=== PATIENT | female | born 1980 | race Caucasian/White ===

== ENCOUNTER 2017-06-05 11:38 | Emergency (ER) | payer MEDICAID ==
[~2017-06-05] VITALS: Ht 162.6 cm; Wt 90.0 kg
[2017-06-05 11:39] VITALS: BP 162/82; PULSE 81; RESP 16; TEMP 98.1; O2SAT 98
--- NOTE | 2017-06-05 13:09 | PD ---
HPI Chief Complaint: Skin Problem Time Seen by Provider: 12:42 Travel History International Travel<30 days: No Contact w/Intl Traveler<30days: No Traveled to known affect area: No History of Present Illness HPI 36-year-old female presents to the ED for evaluation of worsening eczema and pruritic rash of the bilateral hands and left side of the face. Gradual onset. Patient states that she borrowed a coat lined with fake fur just before the rash was onset. She denies fevers, chills, breathing difficulties, chest pain or palpitations. Denies other known exposures to new deodorants, soaps. States that she is out of steroid cream x 3 days. PFSH Past Medical History Medical History: Denies Significant Hx ?: Not LMP: 05/2017 Ectopic : Yes Past Surgical History Section: Yes Social History Alcohol Use: Yes Tobacco Use: Yes Substance Use: No Allergies-Medications (Allergen,Severity, Reaction): Coded Allergies: No Known Allergies (Unverified , 06/05/17) Reported Meds & Prescriptions Reported Meds & Active Scripts Active Triamcinolone Topical (Triamcinolone Acetonide) 0.1% Cream 1 Applic TOPICAL BID 10 Days Prednisone 20 Mg Tab 20 Mg PO DAILY 4 Days Review of Systems Except as stated in HPI: all other systems reviewed are Neg Physical Exam Narrative GENERAL: Well-nourished, well-developed white female no acute distress. SKIN: Focused skin assessment warm/dry. Desquamation of the palms bilaterally, chronic appearing. Scattered, erythematous, blanching, maculopapular rash distributed on the posterior aspects of bilateral hands and the left cheek. HEAD: Normocephalic. ENT: No erythema, edema, exudate of the oropharynx. Uvula midline. Airway patent. EYES: No scleral icterus. No injection or drainage. NECK: Supple, trachea midline. No JVD or lymphadenopathy. CARDIOVASCULAR: Regular rate and rhythm without murmurs, gallops, or rubs. RESPIRATORY: Breath sounds clear and equal bilaterally. No accessory muscle use. GASTROINTESTINAL: Abdomen soft, non-tender, nondistended. MUSCULOSKELETAL: No cyanosis, or edema. BACK: Nontender without obvious deformity. No CVA tenderness. Data Data Last Documented VS Vital Signs Date Time Temp Pulse Resp B/P (MAP) Pulse Ox O2 Delivery O2 Flow Rate FiO2 06/05/17 13:51 06/05/17 11:39 98.1 81 16 98 Orders Orders Prednisone (Deltasone) (06/05/17 13:15) Ed Discharge Order (06/05/17 13:31) [facility] Medical Decision Making Medical Screen Exam Complete: Yes Emergency Medical Condition: Yes Differential Diagnosis Eczema versus contact dermatitis versus scabies versus other Narrative Course 36-year-old female presents to the ED for evaluation of worsening eczema and pruritic rash of the bilateral hands and left side of the face. Gradual onset. Patient states that she borrowed a coat with fake fur on the inside from a friend just before the rash was onset. She denies fevers, chills, breathing difficulties. Vitals reviewed. Physical exam consistent with eczema of the palms of the hand bilaterally with a scattered, erythematous, blanching, maculopapular rash distributed over the back of the hands and of the left base. No interdigital lesions. Suspect this is contact dermatitis superimposed on chronic eczema. Patient's prescribed when he developed grams prednisone 4 days , first dose administered in the ED. She is provided a 15 g tube of triamcinolone cream. She was cautioned not to take oral steroids while using topical steroids. She was advised that the steroid cream is for treatment of her chronic problem after her acute problem is treated. She is instructed to avoid known irritants, warm showers. She indicated understanding of the instructions and is agreeable care plan. The patient is stable and discharged home. Diagnosis Primary Impression: Contact dermatitis and eczema Referrals: Senior Executive Compensation Analyst Patient Instructions: Contact Dermatitis (ED), Eczema (ED), General Instructions Additional Instructions: Rest, hydrate. Take oral steroids for the next 4 days as prescribed. Use topical steroids after finishing the oral steroids. DO NOT USE BOTH ORAL AND TOPICAL STEROIDS AT THE SAME TIME. Avoid hot showers as this can worsen itching and peeling. Follow-up with the ceramic tile installer this week. Return to the ED for any urgent or emergent medical condition. Med/Other Pt SpecificInfo: Prescription(s) given Scripts Triamcinolone Topical (Triamcinolone Topical) 0.1% Cream 1 APPLIC TOPICAL BID for Inflammation for 10 Days, #15 GM 0 Refills Prov: Abram Castellano MD 06/05/17 Prednisone (Prednisone) 20 Mg Tab 20 MG PO DAILY for 4 Days, #4 TAB 0 Refills Prov: Abram Castellano MD 06/05/17 Disposition: 01 DISCHARGE HOME Condition: Stable Aylin Washington Jun 05, 2017 13:09
[2017-06-05] MEDS ORDERED: predniSONE 20 MG TAB PO ONE (13:15)
[2017-06-05] MEDS ORDERED: PRED20 PO (13:31)
[2017-06-05] MEDS ORDERED: TRIA.1%T TOPICAL (13:31)
== END 2017-06-05 13:52 | disposition home or self-care (01) ==
LOC: NEPD 11:38
DX: L25.9 Unspecified contact dermatitis, unspecified cause (principal); Z72.0 Tobacco use
CPT/HCPCS: 99283; J7512

== ENCOUNTER 2017-06-26 10:17 | Emergency (ER) | payer MEDICAID ==
[~2017-06-26] VITALS: Ht 162.6 cm; Wt 90.5 kg
[~2017-06-26 10:17] MED LIST: PRED20 PO; TRIA.1%T TOPICAL
[2017-06-26 10:18] VITALS: BP 164/83; PULSE 80; RESP 16; TEMP 97.8; O2SAT 100
[2017-06-26] MEDS ORDERED: ONDANSETRON ODT 4 MG TAB PO ONE (10:45)
--- NOTE | 2017-06-26 10:56 | PD ---
HPI Chief Complaint: Eye Problems/Injury Time Seen by Provider: 10:31 Travel History International Travel<30 days: No Contact w/Intl Traveler<30days: No Traveled to known affect area: No History of Present Illness HPI 36-year-old female presents to the emergency Department with complaint of cannon grease splashing into her left eyelid and she thinks she may have gotten in her left eye. She denies eye pain, drainage. Denies change in vision. Had a contact lens in at the time and has removed it. Reports burning sensation around her eye. Rates pain 5/10. Has applied ice to the area. Has not taken any medications or tried any other treatments to alleviate her symptoms. No known aggravating factors. No known allergies. Denies significant past medical history. No primary care provider has no other medical complaints. No other modifying factors or associated signs and symptoms. PFSH Past Medical History Ectopic : Yes Past Surgical History Section: Yes Social History Alcohol Use: Yes Tobacco Use: Yes Substance Use: No Allergies-Medications (Allergen,Severity, Reaction): Coded Allergies: No Known Allergies (Unverified , 06/05/17) Reported Meds & Prescriptions Reported Meds & Active Scripts Active Triamcinolone Topical (Triamcinolone Acetonide) 0.1% Cream 1 Applic TOPICAL BID 10 Days Prednisone 20 Mg Tab 20 Mg PO DAILY 4 Days Review of Systems Except as stated in HPI: all other systems reviewed are Neg Physical Exam Narrative GENERAL: Well-nourished, well-developed female patient, in no acute distress SKIN: Warm and dry. I do not see any obvious burn shane around the left eye or to the left eyelid; there is no redness, blistering; the skin is tender to light palpation. HEAD: Atraumatic. Normocephalic. EYES: Pupils equal and round at 3 mm with brisk reaction. PERRLA. EOMI. Left lid eversion with no foreign body noted. Left eye without scleral erythema or lid edema. No orbital tenderness, erythema or cellulitis. Left eye without photophobia. No consensual photophobia. No scleral icterus. No drainage. Briceno lamp exam normal. ENT: Mucosa pink and moist. Airway patent. NECK: Trachea midline. CARDIOVASCULAR: Regular rate. RESPIRATORY: No accessory muscle use. GASTROINTESTINAL: Rounded.. NEUROLOGICAL: Awake and alert. Oriented 3. No obvious cranial nerve deficits. Motor grossly within normal limits. Normal speech. PSYCHIATRIC: Appropriate mood and affect; insight and judgment normal. Data Data Last Documented VS Vital Signs Date Time Temp Pulse Resp B/P (MAP) Pulse Ox O2 Delivery O2 Flow Rate FiO2 06/26/17 11:03 06/26/17 11:03 18 06/26/17 10:18 97.8 80 100 Orders Orders Ed Discharge Order (06/26/17 10:56) MDM Medical Decision Making Medical Screen Exam Complete: Yes Emergency Medical Condition: Yes Medical Record Reviewed: Yes Differential Diagnosis Burn of left eyelid, superficial burn, first-degree burn, corneal burn Narrative Course 36-year-old female with grease burn of left eyelid. There is no visualized burn but the skin is painful to light palpation and the patient reports a burning sensation. I did a Briceno lamp exam which was unremarkable. The patient washed the area prior to arrival. I offered the patient pain medication and she declined. Instructed patient to follow up with primary care provider. Patient verbalizes understanding and agreement with treatment plan. Patient is medically cleared and stable for discharge. Discussed reasons to return to the emergency department. Patient agrees with treatment plan. The patients vital signs are stable and the patient is stable for outpatient follow- up and treatment. Patient discharged home, stable and in no acute distress. Diagnosis Primary Impression: Burn of left eyelid Qualified Codes: T26.02XA - Burn of left eyelid and periocular area, initial encounter Referrals: [facility] Primary Care Physician Patient Instructions: General Instructions, Superficial Burn (ED) Additional Instructions: Ice to affected area as needed for pain/inflammation Ibuprofen or Tylenol instructed nothing for pain and inflammation Follow-up with primary care provider Return to the emergency department immediately, particularly with symptoms as discussed Med/Other Pt SpecificInfo: No Change to Meds, No Meds Exist/No RX given Disposition: 01 DISCHARGE HOME Condition: Stable Ana Meraz Jun 26, 2017 10:56
== END 2017-06-26 11:05 | disposition home or self-care (01) ==
LOC: NEPD 10:17
DX: T26.02XA Burn of left eyelid and periocular area, initial encounter (principal); Z72.0 Tobacco use; Z79.899 Other long term (current) drug therapy
CPT/HCPCS: 99282

== ENCOUNTER 2017-09-12 16:29 | Emergency (ER) | payer MEDICAID ==
[2017-09-12 16:37] VITALS: BP 167/87; PULSE 94; RESP 18; TEMP 97.7; O2SAT 99
[2017-09-12] MEDS ORDERED: CEPHALEXIN MONOHYDRATE 500 MG CAP PO ONE (19:00)
[2017-09-12] MEDS ORDERED: predniSONE 20 MG TAB PO ONE (19:00)
[2017-09-12] MEDS ORDERED: NYSTCRE29 TOPICAL (19:05)
[2017-09-12] MEDS ORDERED: CEPH-460 PO (19:05)
--- NOTE | 2017-09-12 19:06 | PD ---
HPI Chief Complaint: Skin Problem Time Seen by Provider: 18:35 Travel History International Travel<30 days: No Contact w/Intl Traveler<30days: No Traveled to known affect area: No History of Present Illness HPI 36y female presents to the ED c/o bilateral hand pain, swelling, and scaling for 1 day. Says she used leather and nylon gloves yesterday and developed this rash shortly afterward. Denies fever, chills, chest pain, SOB. Says she has a history of eczema-type reaction of her hands but has never been as severe as it is today. She has used over the counter [place] butter with some relief. Denies chronic medical problems. Denies unusual exposures to chemicals, foods, or otherwise. PFSH Past Medical History Medical History: Denies Significant Hx Diminished Hearing: No Integumentary: Yes (eczema) Tetanus Vaccination: < 5 Years ?: Not LMP: last week Ectopic : Yes Past Surgical History Section: Yes Gynecologic Surgery: Yes Social History Alcohol Use: Yes Tobacco Use: Yes (1/2ppd) Substance Use: No Allergies-Medications (Allergen,Severity, Reaction): Coded Allergies: No Known Allergies (Unverified , 09/12/17) Reported Meds & Prescriptions Reported Meds & Active Scripts Active Prednisone 5 Mg Tab 5 Mg PO DAILY 7 Days Keflex (Cephalexin) 500 Mg Cap 500 Mg PO Q8H 5 Days Nystatin-Triamcinolone 100,000-0.1 Unit/Gm Cream 1 Applic TOPICAL BID 7 Days Review of Systems Except as stated in HPI: all other systems reviewed are Neg Physical Exam Narrative GENERAL: WD, WN in NAD SKIN: Warm and dry. HEAD: Atraumatic. Normocephalic. EYES: Pupils equal and round. No scleral icterus. No injection or drainage. ENT: No nasal bleeding or discharge. Mucous membranes pink and moist. NECK: Trachea midline. No JVD. CARDIOVASCULAR: Regular rate and rhythm. RESPIRATORY: No accessory muscle use. Clear to auscultation. Breath sounds equal bilaterally. MUSCULOSKELETAL: Extremities without clubbing, cyanosis, or edema. No obvious deformities. Bilateral hands- palmar aspect scaling with honey crusting along flexors, erythema and mild swelling to fingers. satellite lesions to dorsal hand.limited to hands, no involvement to the wrists. NEUROLOGICAL: Awake and alert. No obvious cranial nerve deficits. Motor grossly within normal limits. Normal speech. PSYCHIATRIC: Appropriate mood and affect; insight and judgment normal. Data Data Last Documented VS Vital Signs Date Time Temp Pulse Resp B/P (MAP) Pulse Ox O2 Delivery O2 Flow Rate FiO2 09/12/17 16:37 97.7 94 18 167/87 (113) 99 Orders Orders Cephalexin (Keflex) (09/12/17 19:00) Prednisone (Deltasone) (09/12/17 19:00) Ed Discharge Order (09/12/17 19:08) [facility] Medical Decision Making Medical Screen Exam Complete: Yes Emergency Medical Condition: Yes Differential Diagnosis contact dermatitis, eczema, cellulitis Narrative Course 36y female presents to the ED c/o swelling, erythema, and pruritus of the hands after wearing gloves yesterday. Says she has a history of eczema but does not remember having this rash of this severity. Vital signs stable. Keflex and prednisone for developing skin infection and probably eczema. It appears as if this rash has been present for longer than 1 day although she says otherwise. Will cover with nystatin-triamcinolone, keflex, and short course of prednisone. Advised she should return for worsening or persistent symptoms. Advised to return for worsening symptoms. Follow up with dermatology. Diagnosis Primary Impression: Contact dermatitis Qualified Codes: L25.9 - Unspecified contact dermatitis, unspecified cause Referrals: Primary Care Physician Additional Instructions: Take all medications as prescribed. Avoid exposures to chemicals or other substances. Scripts Prednisone (Prednisone) 5 Mg Tab 5 MG PO DAILY for 7 Days, #7 TAB 0 Refills Prov: Brisa Robledo MD 09/12/17 Cephalexin (Keflex) 500 Mg Cap 500 MG PO Q8H for Infection for 5 Days, #15 CAP 0 Refills Prov: Anu Heaton 09/12/17 Nystatin-Triamcinolone (Nystatin-Triamcinolone) 100,000-0.1 Unit/Gm Cream 1 APPLIC TOPICAL BID for Infection for 7 Days, #15 GM 0 Refills Prov: Anu Heaton 09/12/17 Disposition: 01 DISCHARGE HOME Condition: Stable Anu Heaton Sep 12, 2017 19:06
[2017-09-12] MEDS ORDERED: PRED5TAB PO (19:07)
== END 2017-09-12 19:12 | disposition home or self-care (01) ==
LOC: NED 16:29 → NEPA 19:12
DX: L25.9 Unspecified contact dermatitis, unspecified cause (principal); F17.200 Nicotine dependence, unspecified, uncomplicated
CPT/HCPCS: 99284; J7512

== ENCOUNTER 2017-09-25 23:23 | Emergency (ER) | payer MEDICAID, OTHER ==
[~2017-09-25] VITALS: Ht 162.6 cm; Wt 91.0 kg
[~2017-09-25 23:23] MED LIST changes: +CEPH-460 PO; +NYSTCRE29 TOPICAL; -PRED20 PO; +PRED5TAB PO; -TRIA.1%T TOPICAL
[2017-09-25 23:31] VITALS: BP 152/78; PULSE 78; RESP 18; TEMP 98.4; O2SAT 100
--- NOTE | 2017-09-26 00:02 | PD ---
HPI Chief Complaint: Psychiatric Symptoms Time Seen by Provider: 23:57 Travel History International Travel<30 days: No Contact w/Intl Traveler<30days: No Traveled to known affect area: No History of Present Illness HPI 37-year-old white female presents emergency department under [place] act by PD. Patient had made suicidal statements to her significant other who had called PD. The patient states that she had been in a verbal argument with her boyfriend and he was not allowing her to leave the house. She states that she said this to enable her to leave. She denies any true suicidal ideation. No toxic ingestions. No homicidal ideation. She does report having a scaly dermatitis on her hands and arms which is pruritic but she states that she has a history of contact dermatitis. She was seen in the emergency department earlier last month was given medication which seem to be improving. Patient also states that she is currently on her menstrual cycle now even though she had one 2 weeks ago. PFSH Past Medical History Anemia: Yes Diabetes: No Patient Takes Glucophage: No Diminished Hearing: No Integumentary: Yes (eczema) Immunizations Current: Yes Tetanus Vaccination: > 5 Years Influenza Vaccination: No ?: Unknown LMP: CURRENT : 3 Para: 2 Miscarriage: 1 Ectopic : Yes Tubal Ligation: Yes Past Surgical History Section: Yes Gynecologic Surgery: Yes (ectopic ) Tonsillectomy: Yes Social History Alcohol Use: Yes Tobacco Use: Yes (1/2ppd) Substance Use: Yes (Marijuana) Allergies-Medications (Allergen,Severity, Reaction): Coded Allergies: bee venom protein (honey bee) (Verified Allergy, Unknown, 09/25/17) Reported Meds & Prescriptions Reported Meds & Active Scripts Active No Active Prescriptions or Reported Medications Review of Systems General / Constitutional: No: Fever Eyes: No: Visual changes HENT: No: Headaches Cardiovascular: No: Chest Pain or Discomfort Respiratory: No: Shortness of Breath Gastrointestinal: No: Abdominal Pain Genitourinary: No: Dysuria Musculoskeletal: No: Pain Skin: Positive Rash, Positive Itching, Positive Dryness, Positive Lesions Neurologic: No: Weakness Psychiatric: Positive: Mood Disorder, Substance Abuse, No: Anxiety, Depression , Suicidal Ideations, Disorder of Thought, Homicidal Ideation Endocrine: No: Polydipsia Hematologic/Lymphatic: No: Easy Bruising Physical Exam Narrative GENERAL: Well-nourished, well-developed patient. SKIN: Patient has dry scaly dermatitis to the palms of her hand and forearms. HEAD: Normocephalic and atraumatic. EYES: No scleral icterus. No injection or drainage. ENT: No nasal drainage noted. Mucous membranes pink. Airway patent. NECK: Supple, trachea midline. Moves head freely without obvious discomfort. CARDIOVASCULAR: Regular rate and rhythm without murmurs, gallops, or rubs. RESPIRATORY: Breath sounds equal bilaterally. No accessory muscle use. GASTROINTESTINAL: Abdomen soft, non-tender, nondistended. EXTREMITIES: No cyanosis or edema. BACK: Nontender without obvious deformity. No CVA tenderness. NEURO: Patient is alert and oriented. no sensorimotor deficits. Nonfocal. Normal speech. PSYCH: No delusions. No auditory or visual hallucinations. Data Data Last Documented VS Vital Signs Date Time Temp Pulse Resp B/P (MAP) Pulse Ox O2 Delivery O2 Flow Rate FiO2 09/25/17 23:31 98.4 78 18 152/78 (102) 100 Orders Orders Complete Blood Count With Diff (09/25/17 23:56) Comprehensive Metabolic Panel (09/25/17 23:56) Thyroid Stimulating Hormone (09/25/17 23:56) Ed Urine Pregnancytest Poc (09/25/17 23:56) Psych Screen (09/25/17 23:56) Drug Screen, Random Urine (09/25/17 23:56) Alcohol (Ethanol) (09/25/17 23:56) Labs Laboratory Tests Test 09/25/17 23:37 White Blood Count 13.1 TH/MM3 Red Blood Count 4.50 MIL/MM3 Hemoglobin 13.2 GM/DL Hematocrit 39.3 % Mean Corpuscular Volume 87.2 FL Mean Corpuscular Hemoglobin 29.2 PG Mean Corpuscular Hemoglobin Concent 33.5 % Red Cell Distribution Width 14.8 % Platelet Count 356 TH/MM3 Mean Platelet Volume 8.8 FL Neutrophils (%) (Auto) 65.8 % Lymphocytes (%) (Auto) 23.7 % Monocytes (%) (Auto) 6.6 % Eosinophils (%) (Auto) 2.9 % Basophils (%) (Auto) 1.0 % Neutrophils # (Auto) 8.7 TH/MM3 Lymphocytes # (Auto) 3.1 TH/MM3 Monocytes # (Auto) 0.9 TH/MM3 Eosinophils # (Auto) 0.4 TH/MM3 Basophils # (Auto) 0.1 TH/MM3 CBC Comment AUTO DIFF Differential Comment AUTO DIFF CONFIRMED Platelet Estimate NORMAL Platelet Morphology Comment NORMAL Blood Urea Nitrogen 11 MG/DL Creatinine 0.75 MG/DL Random Glucose 81 MG/DL Total Protein 8.3 GM/DL Albumin 4.1 GM/DL Calcium Level 8.8 MG/DL Alkaline Phosphatase 44 U/L Aspartate Amino Transf (AST/SGOT) 25 U/L Alanine Aminotransferase (ALT/SGPT) 39 U/L Total Bilirubin 0.3 MG/DL Sodium Level 139 MEQ/L Potassium Level 3.8 MEQ/L Chloride Level 104 MEQ/L Carbon Dioxide Level 24.6 MEQ/L Anion Gap 10 MEQ/L Estimat Glomerular Filtration Rate 86 ML/MIN Thyroid Stimulating Hormone 3rd Gen 4.690 uIU/ML Urine Opiates Screen POS Urine Barbiturates Screen NEG Urine Amphetamines Screen NEG Urine Benzodiazepines Screen NEG Urine Cocaine Screen NEG Urine Cannabinoids Screen POS Ethyl Alcohol Level LESS THAN 3 MG/DL MDM Medical Decision Making Medical Screen Exam Complete: Yes Emergency Medical Condition: Yes Medical Record Reviewed: Yes Interpretation(s) Laboratory Tests Test 09/25/17 23:37 White Blood Count 13.1 TH/MM3 Red Blood Count 4.50 MIL/MM3 Hemoglobin 13.2 GM/DL Hematocrit 39.3 % Mean Corpuscular Volume 87.2 FL Mean Corpuscular Hemoglobin 29.2 PG Mean Corpuscular Hemoglobin Concent 33.5 % Red Cell Distribution Width 14.8 % Platelet Count 356 TH/MM3 Mean Platelet Volume 8.8 FL Neutrophils (%) (Auto) 65.8 % Lymphocytes (%) (Auto) 23.7 % Monocytes (%) (Auto) 6.6 % Eosinophils (%) (Auto) 2.9 % Basophils (%) (Auto) 1.0 % Neutrophils # (Auto) 8.7 TH/MM3 Lymphocytes # (Auto) 3.1 TH/MM3 Monocytes # (Auto) 0.9 TH/MM3 Eosinophils # (Auto) 0.4 TH/MM3 Basophils # (Auto) 0.1 TH/MM3 CBC Comment AUTO DIFF Differential Comment AUTO DIFF CONFIRMED Platelet Estimate NORMAL Platelet Morphology Comment NORMAL Blood Urea Nitrogen 11 MG/DL Creatinine 0.75 MG/DL Random Glucose 81 MG/DL Total Protein 8.3 GM/DL Albumin 4.1 GM/DL Calcium Level 8.8 MG/DL Alkaline Phosphatase 44 U/L Aspartate Amino Transf (AST/SGOT) 25 U/L Alanine Aminotransferase (ALT/SGPT) 39 U/L Total Bilirubin 0.3 MG/DL Sodium Level 139 MEQ/L Potassium Level 3.8 MEQ/L Chloride Level 104 MEQ/L Carbon Dioxide Level 24.6 MEQ/L Anion Gap 10 MEQ/L Estimat Glomerular Filtration Rate 86 ML/MIN Thyroid Stimulating Hormone 3rd Gen 4.690 uIU/ML Urine Opiates Screen POS Urine Barbiturates Screen NEG Urine Amphetamines Screen NEG Urine Benzodiazepines Screen NEG Urine Cocaine Screen NEG Urine Cannabinoids Screen POS Ethyl Alcohol Level LESS THAN 3 MG/DL Differential Diagnosis MDM: High Differential diagnoses: Schizophrenia, schizoaffective disorder, bipolar, anxiety, depression, adjustment reaction, mood disorder NOS, ODD, depressive disorder NOS, dementia, dementia with agitation, psychosis NOS, substance induced mood disorder, eczema, infection,electrolyte abnormality, malingering. Narrative Course Mental health screening discussed with the patient. Psychiatric screen ordered. The patient's been medically cleared. This is medical clearance for psychiatric admission, eczema/atopic dermatitis Diagnosis Primary Impression: Medical clearance for psychiatric admission Additional Impression: Atopic dermatitis Qualified Codes: L20.9 - Atopic dermatitis, unspecified Scripts No Active Prescriptions or Reported Meds Condition: Kj Sr Sep 26, 2017 00:02
[2017-09-26 00:20] LABS: AUTOMATED NEUTROPHIL # 8.7 TH/MM3 (1.8-7.7); BASOPHIL # 0.1 TH/MM3 (0-0.2); EOSINOPHIL # 0.4 TH/MM3 (0-0.4); EOSINOPHIL % 2.9 % (0.0-4.0); HEMATOCRIT 39.3 % (35.0-46.0); HEMOGLOBIN 13.2 GM/DL (11.6-15.3); LYMPH % 23.7 % (9.0-44.0); LYMPHOCYTE # 3.1 TH/MM3 (1.0-4.8); MEAN CELL VOLUME 87.2 FL (80.0-100.0); MEAN CORPUSCULAR HEMOGLOBIN 29.2 PG (27.0-34.0); MEAN CORPUSCULAR HGB CONC 33.5 % (32.0-36.0); MEAN PLATELET VOLUME 8.8 FL (7.0-11.0); MONO % 6.6 % (0.0-8.0); MONOCYTE # 0.9 TH/MM3 (0-0.9); NEUT % 65.8 % (16.0-70.0); PLATELET COUNT 356 TH/MM3 (150-450); RED CELL DISTRIBUTION WIDTH 14.8 % (11.6-17.2); WHITE BLOOD COUNT 13.1 TH/MM3 (4.0-11.0)
[2017-09-26 00:33] LABS: ALBUMIN 4.1 GM/DL (3.4-5.0); ALT (GPT) 39 U/L (10-53); AST (GOT) 25 U/L (15-37); BICARBONATE 24.6 MEQ/L (21.0-32.0); BLOOD UREA NITROGEN 11 MG/DL (7-18); CALCIUM 8.8 MG/DL (8.5-10.1); CHLORIDE 104 MEQ/L (98-107); CREATININE 0.75 MG/DL (0.50-1.00); GLOMERULAR FILTRATION RATE 86 ML/MIN (>89); GLUCOSE,RANDOM 81 MG/DL (74-106); SODIUM (NA) 139 MEQ/L (136-145)
[2017-09-26 00:42] LABS: ALKALINE PHOSPHATASE 44 U/L (45-117); TOTAL BILIRUBIN ADULT 0.3 MG/DL (0.2-1.0); TOTAL PROTEIN 8.3 GM/DL (6.4-8.2)
[2017-09-26] MEDS ORDERED: IBUPROFEN 600 MG TAB PO ONE (06:30)
[2017-09-26 08:00] VITALS: BP 139/76; PULSE 78; RESP 18; O2SAT 98
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
--- NOTE | 2017-09-26 14:56 | PD ---
Physical Exam Date Seen by Provider: Sep 26, 2017 Time Seen by Provider: 14:54 Narrative For full history and physical examination please see previous providers note. Data Data Last Documented VS Vital Signs Date Time Temp Pulse Resp B/P (MAP) Pulse Ox O2 Delivery O2 Flow Rate FiO2 09/26/17 08:00 78 18 139/76 (97) 98 Room Air 09/25/17 23:31 98.4 Orders Orders Complete Blood Count With Diff (09/25/17 23:56) Comprehensive Metabolic Panel (09/25/17 23:56) Thyroid Stimulating Hormone (09/25/17 23:56) Ed Urine Pregnancytest Poc (09/25/17 23:56) Psych Screen (09/25/17 23:56) Drug Screen, Random Urine (09/25/17 23:56) Alcohol (Ethanol) (09/25/17 23:56) Ibuprofen (Motrin) (09/26/17 06:30) Diet Regular Basic (09/26/17 Breakfast) Diet Regular Basic (09/26/17 Lunch) Diet Regular Basic (09/26/17 Dinner) Ed Discharge Order (09/26/17 14:51) Labs Laboratory Tests Test 09/25/17 23:37 White Blood Count 13.1 TH/MM3 Red Blood Count 4.50 MIL/MM3 Hemoglobin 13.2 GM/DL Hematocrit 39.3 % Mean Corpuscular Volume 87.2 FL Mean Corpuscular Hemoglobin 29.2 PG Mean Corpuscular Hemoglobin Concent 33.5 % Red Cell Distribution Width 14.8 % Platelet Count 356 TH/MM3 Mean Platelet Volume 8.8 FL Neutrophils (%) (Auto) 65.8 % Lymphocytes (%) (Auto) 23.7 % Monocytes (%) (Auto) 6.6 % Eosinophils (%) (Auto) 2.9 % Basophils (%) (Auto) 1.0 % Neutrophils # (Auto) 8.7 TH/MM3 Lymphocytes # (Auto) 3.1 TH/MM3 Monocytes # (Auto) 0.9 TH/MM3 Eosinophils # (Auto) 0.4 TH/MM3 Basophils # (Auto) 0.1 TH/MM3 CBC Comment AUTO DIFF Differential Comment AUTO DIFF CONFIRMED Platelet Estimate NORMAL Platelet Morphology Comment NORMAL Blood Urea Nitrogen 11 MG/DL Creatinine 0.75 MG/DL Random Glucose 81 MG/DL Total Protein 8.3 GM/DL Albumin 4.1 GM/DL Calcium Level 8.8 MG/DL Alkaline Phosphatase 44 U/L Aspartate Amino Transf (AST/SGOT) 25 U/L Alanine Aminotransferase (ALT/SGPT) 39 U/L Total Bilirubin 0.3 MG/DL Sodium Level 139 MEQ/L Potassium Level 3.8 MEQ/L Chloride Level 104 MEQ/L Carbon Dioxide Level 24.6 MEQ/L Anion Gap 10 MEQ/L Estimat Glomerular Filtration Rate 86 ML/MIN Thyroid Stimulating Hormone 3rd Gen 4.690 uIU/ML Urine Opiates Screen POS Urine Barbiturates Screen NEG Urine Amphetamines Screen NEG Urine Benzodiazepines Screen NEG Urine Cocaine Screen NEG Urine Cannabinoids Screen POS Ethyl Alcohol Level LESS THAN 3 MG/DL MDM Medical Record Reviewed: Yes Supervised Visit with KELSEA: No Narrative Course For full history and physical examination please see previous providers note. Patient was brought to emergency department under Hernandez act for psychiatric evaluation. She was seen and evaluated in the emergency department, medically cleared. She was then evaluated by the psychiatric nurse practitioner. Patient was deemed safe to be discharged home, Hernandez act was lifted. Diagnosis Primary Impression: Medical clearance for psychiatric admission Additional Impressions: Adjustment disorder Qualified Codes: F43.20 - Adjustment disorder, unspecified Atopic dermatitis Qualified Codes: L20.9 - Atopic dermatitis, unspecified Referrals: [facility] (Out patient) Primary Care Physician Patient Instructions: General Instructions Additional Instruction: Follow-up with your primary doctor at the [facility] Follow-up at [facility] Return to emergency department for any new or worsening symptoms Med/Other Pt SpecificInfo: No Change to Meds Scripts No Active Prescriptions or Reported Meds Disposition: 01 DISCHARGE HOME Condition: Stable Galilea Fuentes [facility] Sep 26, 2017 14:56
== END 2017-09-26 15:55 | disposition home or self-care (01) ==
LOC: NEPD 23:23 → NEPJ 09-26 15:55
DX: F43.20 Adjustment disorder, unspecified (principal); L20.9 Atopic dermatitis, unspecified
CPT/HCPCS: 80053; 80307; 84443; 84703; 85025; 99283